=== PATIENT | male | born 1935 | race Caucasian/White ===

== ENCOUNTER 2018-09-04 06:21 | Inpatient (IN) | payer MEDICARE, MEDICAID ==
[~2018-09-04] VITALS: Ht 180.3 cm; Wt 84.8 kg
[~2018-09-04 06:21] MED LIST: ASPI-1169 PO; LOSA50TA39 PO; METO-356 PO; TAMS-12 PO; TIMO5DRO4 EACHEYE
--- NOTE | 2018-09-04 06:25 | NUR ---
Pt IS OF Pt WHO WAS IN ER BED 10 KENZIE TUCKER. Pt KENZIE GARCIA CAME TO ER TO VISIT HIS WHO CAME IN DUE TO SYNCOPAL EPISODE AT HOME. Pt WAS AT THE BEDSIDE OF ER BED 10 WITH HIS AND SON-IN -LAW AND DAUGHTER AT BEDSIDE WELL. DAUGHTER LEFT AND CURRENT Pt (THE ) STAYED BEHIND WITH HIS SON IN LAW. PER SON IN LAW CRYSTAL, HE SAID THAT THE Pt (RADHA) WAS TRYING TO SIT DOWN ON THE CHAIR, AND THE NEXT THING HE SAW WAS HIS FATHER IN LAW SLIPPED FROM THE CHAIR AND FELL DOWN ON THE FLOOR. SON IN LAW BELIEVES HE MAY HAVE HIT HIS HEAD ON THE BED HE WAS FALLING DOWN. I ONLY FOUND Pt AFTER HE WAS ALREADY ON THE FLOOR. I WAS ATTENDING TO Pt IN ER BED 11. HEARD A NOISE AND HEARD SON IN LAW CALLING FOR HELP. DID NOT WITNESS Pt HITTING HIS HEAD ON THE BED, BUT DID NOTICE THAT Pt's HEAD WAS VERY CLOSE TO THE BED AND THE WALL. DINORAH SANTIAGO AND I ASSISTED THE Pt TO HIS BACK SINCE HE WAS FACING DOWN TOWARDS THE GROUND ON HIS LEFT SIDE. NOTED Pt's EYES WERE OPEN AND BLINKING, BUT Pt WAS NON-RESPONSIVE TO QUESTIONS. SON IN LAW WAS SPEAKING TO HIM IN [place] BUT Pt WAS STILL NOT VERBALLY ANSWERING, BUT ONLY BLINKING HIS EYES. DR SARGENT AT BEDSIDE FOR EVAL. WAITING TO CARRY OUT ORDERS.
[2018-09-04 06:48] LABS: BASOPHILS # (AUTO) 0.1 /CMM (0.0-0.2); BASOPHILS % (AUTO) 0.9 % (0.0-2.0); EOSINOPHILS % (AUTO) 8.5 % (0.0-6.0); HEMATOCRIT 42 % (39-51); HEMOGLOBIN 13.7 g/dL (13.5-17.5); LYMPHOCYTES # (AUTO) 1.3 /CMM (0.8-4.8); LYMPHOCYTES % (AUTO) 17.2 % (20.0-44.0); MEAN CORPUSCULAR HGB CONC 33 g/dl (31.0-36.0); MEAN CORPUSCULAR VOLUME 91 fL (80-96); MONOCYTES # (AUTO) 0.8 /CMM (0.1-1.30); MONOCYTES % (AUTO) 10.7 % (2.0-12.0); NEUTROPHILS # (AUTO) 4.7 /CMM (1.8-8.9); NEUTROPHILS % (AUTO) 62.7 % (43.0-81.0); PLATELET COUNT (AUTO) 205 /CMM (150-450); RED BLOOD CELL COUNT(AUTO) 4.63 MIL/uL (4.5-6.0); WHITE BLOOD COUNT (AUTO) 7.4 K/uL (4.3-11.0)
--- NOTE | 2018-09-04 06:53 | NUR ---
PT IN CT
[2018-09-04 06:56] LABS: CALCIUM, SERUM 9.4 mg/dL (8.5-10.1); CARBON DIOXIDE 25 mmol/L (21-32); CHLORIDE 104 mmol/L (98-107); GLUCOSE 124 mg/dL (74-106); POTASSIUM 3.4 mmol/L (3.5-5.1); SODIUM SERUM 139 mmol/L (136-145); UREA NITROGEN, BLOOD 15 mg/dL (7-18)
[2018-09-04] MEDS ORDERED: IV NS 0.9% 1,000 ML BAG IV ONE (07:00)
[2018-09-04 07:02] LABS: ALANINE AMINOTRANSFERASE 18 U/L (12-78); ALBUMIN 3.9 g/dL (3.4-5.0); ALKALINE PHOSPHATASE 59 U/L (46-116); ASPARTATE AMINOTRANSFERASE 15 U/L (15-37); BILIRUBIN,DIRECT 0.3 mg/dL (0.0-0.2); BILIRUBIN,TOTAL 1.5 mg/dL (0.2-1.0); TOTAL PROTEIN, SERUM 7.8 g/dL (6.4-8.2)
[2018-09-04] MEDS ORDERED: DOXA2TAB2 PO (07:20)
--- NOTE | 2018-09-04 08:36 | NUR ---
PATIENT IS GOING TO ROOM 313-1
--- NOTE | 2018-09-04 08:53 | NUR ---
CALLED [facility] AND SPOKE TO RICHA JIN FOR JEOVANY.
[2018-09-04] MEDS ORDERED: LOSARTAN POTASSIUM 50 MG TABLET PO SCH (10:00)
[2018-09-04] MEDS ORDERED: MAGNESIUM HYDROXIDE 30 ML UDC PO PRN (10:30)
[2018-09-04] MEDS ORDERED: DOXAZOSIN MESYLATE (1 MG) 1 MG TABLET PO SCH (10:30)
[2018-09-04] MEDS ORDERED: MAG HYDROX/AL HYDROX/SIMETH 30 ML UDC PO PRN (10:30)
[2018-09-04] MEDS ORDERED: HYDROCODONE/APAP 5/325MG 1 EACH TABLET PO PRN (10:30)
[2018-09-04] MEDS ORDERED: Z GUARD REMEDY 2 OZ OINT TP PRN (10:30)
[2018-09-04] MEDS ORDERED: ZOLPIDEM TARTRATE 5 MG TABLET PO PRN (10:30)
[2018-09-04] MEDS ORDERED: ONDANSETRON HCL/PF 4 MG/2 ML VIAL IVP PRN (10:30)
[2018-09-04] MEDS ORDERED: ACETAMINOPHEN 325 MG TABLET PO PRN (10:30)
[2018-09-04 11:00] VITALS: BP_SYST 150; BP_SYST 151; BP_SYST 157; BP_DIAS 92; BP_DIAS 96; BP_DIAS 97
[2018-09-04] MEDS: POTASSIUM CHLORIDE 20 MEQ TAB.PRT.SR PO SCH ×2 (11:00→11:26)
--- NOTE | 2018-09-04 11:00 | NUR ---
tele manager agency: admission admitted this 83 yr old male pt from [facility] [place] with dx: syncope. awake, a/ox4; australian speaking with little jordanian. son at bedside to translate. no c/o pain or any discomfort. oriented to room and surroundings. tele sr with slight st elevation. orthostatic b/p done. pt c/o slight lightheadedness. will continue to monitor. instructed to call for assistance. will monitor.
[2018-09-04] MEDS: METOPROLOL SUCCINATE 25 MG TAB.SR.24H PO SCH (11:27)
[2018-09-04] MEDS: ASPIRIN 81 MG TAB.CHEW PO SCH (11:27)
[2018-09-04] MEDS: TIMOLOL 0.5% SOLN OPHTH 5 ML BOTTLE EACHEYE SCH ×2 (11:30→17:00)
--- NOTE | 2018-09-04 11:30 | NUR ---
tele powerhouse operator: p.t. eval up with p.t. at this time. son remains at bedside. will monitor.
--- NOTE | 2018-09-04 11:35 | NUR ---
tele milk runner: notes son requests to have his parents together in one room. per son dr. mejia already approved it already. cn made aware.
[2018-09-04 12:00] VITALS: BP 139/78
--- NOTE | 2018-09-04 12:30 | NUR ---
tele tank welder: notes son still asking for a room, informed son that the room still not ready yet. cn made aware.
--- NOTE | 2018-09-04 13:00 | NUR ---
tele dumpman: notes son keeps asking for the room and refused to listen with nurses that the room still not ready. son came up to nurses's station and spoke to cn. will continue to monitor.
[2018-09-04] MEDS: IV NS 0.9% 1,000 ML IV PRN (13:13)
[2018-09-04] MEDS ORDERED: POTASSIUM CHLORIDE 20 MEQ TAB.PRT.SR PO ONE (13:30)
--- NOTE | 2018-09-04 14:00 | NUR ---
tele fruit packer: notes son keeps asking if room is available now so that his parents can be together. informed son the room still not ready, but son is so adamant getting the room change now, son rushed to the nurse's station and spoke to cn. cn given son in 2 hours time because the room has just been cleaned and waxed. will continue to monitor.
--- NOTE | 2018-09-04 15:00 | NUR ---
tele adobe layer: notes moved pt to room 308-1 with all belongings via w/c. family and pt are pleased. instructed to call for assistance.
--- NOTE | 2018-09-04 15:35 | NUR ---
tele supportability engineer: notes dr. méndez here and informed md that per son pt is not taking cardura instead, pt is taking flomax 0.4mg po daily with order to d'c cardura and start him on flomax 0.4mg po daily. order read back and carried out and acknowledged.
[2018-09-04 16:00] VITALS: BP 146/88
--- NOTE | 2018-09-04 16:39 | NUR ---
tele perfect binder feeder offbearer: notes son came up to nurses station and informed me that they have their urologist called and per their urologist pt can have the flomax early. cn made aware. notified and made aware with order to give flomax 0.4mg po now and schedule next dose for tomorrow. order read back and carried out and acknowledged.
[2018-09-04] MEDS ORDERED: TAMSULOSIN 0.4 MG CAP.SR.24H PO SCH ×2 (17:00→22:00)
[2018-09-04] MEDS ORDERED: TAMSULOSIN 0.4 MG CAP.SR.24H PO ONE (17:00)
--- NOTE | 2018-09-04 17:00 | NUR ---
tele trouble shooter: notes son asked for flomax once more and informed him that pharmacist has verified the order yet. will continue to monitor.
--- NOTE | 2018-09-04 18:45 | NUR ---
tele ad clerk: notes resting comfortable with no distress noted. son remains at bedside. will continue to monitor.
--- NOTE | 2018-09-04 19:15 | NUR ---
tele systems testing laboratory technician: notes bedside report given to yolanda (rn) for continuity of care.
--- NOTE | 2018-09-04 19:30 | NUR ---
COLD ROLLING COORDINATOR INITIAL NOTES Patient in bed, awake, A/O x4. Stable oxygen saturation on RA. Sinus rhythm in tele monitor. IVF infusing tolerating well. Denies pain, no c/o of dizziness or headache. Maintained safety, will cont to monitor.
[2018-09-04 20:00] VITALS: BP 113/81
[2018-09-05] VITALS: BP 125/78
[2018-09-05] MEDS: IV NS 0.9% 1,000 ML IV PRN ×2 (00:55→08:31)
[2018-09-05 04:00] VITALS: BP 127/81
[2018-09-05 05:11] VITALS: BP 127/81
--- NOTE | 2018-09-05 06:08 | NUR ---
CUSTOM PROTECTION OFFICER CLOSING NOTES Patient in bed, slept well. Stable oxygen saturation on RA. Sinus rhythm on the tele monitor. IVF infusing, maintained at 125ml/hr, tolerating well. Ambulates independently, denies pain, no c/o of dizziness or headache, no episode of syncope, no acute events over night. Awaits neuro consult. Maintained safety, will endorse to oncoming RN.
--- NOTE | 2018-09-05 07:45 | NUR ---
Tele/RN - Assessment Patient in bed awake, alert and oriented x 4, admitted for syncope. Patient denies chest pain, no c/o of weakness or dizziness, stable on room air, tele shows SR. IVF NS at 125 ml/hr infusing well on the LAC with no signs of infiltration. Pending neuro consult. Patient and family updated on plan of care. Will continue with current medical management.
[2018-09-05 08:00] VITALS: BP 123/79
[2018-09-05 08:14] LABS: BASOPHILS % (AUTO) 0.8 % (0.0-2.0); HEMATOCRIT 38 % (39-51); HEMOGLOBIN 12.5 g/dL (13.5-17.5); LYMPHOCYTES % (AUTO) 20.1 % (20.0-44.0); MEAN CORPUSCULAR HGB CONC 33 g/dl (31.0-36.0); MEAN CORPUSCULAR VOLUME 91 fL (80-96); MONOCYTES # (AUTO) 0.5 /CMM (0.1-1.30); NEUTROPHILS # (AUTO) 2.7 /CMM (1.8-8.9); NEUTROPHILS % (AUTO) 55.1 % (43.0-81.0); PLATELET COUNT (AUTO) 161 /CMM (150-450); RED BLOOD CELL COUNT(AUTO) 4.12 MIL/uL (4.5-6.0)
[2018-09-05] MEDS: ASPIRIN 81 MG TAB.CHEW PO SCH (08:30)
[2018-09-05] MEDS: METOPROLOL SUCCINATE 25 MG TAB.SR.24H PO SCH (08:30)
[2018-09-05] MEDS: TIMOLOL 0.5% SOLN OPHTH 5 ML BOTTLE EACHEYE SCH (08:30)
[2018-09-05 08:31] LABS: ALANINE AMINOTRANSFERASE 15 U/L (12-78); ALBUMIN 3.2 g/dL (3.4-5.0); ALKALINE PHOSPHATASE 52 U/L (46-116); ASPARTATE AMINOTRANSFERASE 18 U/L (15-37); BILIRUBIN,TOTAL 1.7 mg/dL (0.2-1.0); CALCIUM, SERUM 8.3 mg/dL (8.5-10.1); CARBON DIOXIDE 26 mmol/L (21-32); CHLORIDE 108 mmol/L (98-107); CREATININE 0.8 mg/dL (0.6-1.3); GLUCOSE 90 mg/dL (74-106); MAGNESIUM 1.8 mg/dL (1.8-2.4); PHOSPHORUS 2.4 mg/dL (2.5-4.9); POTASSIUM 3.5 mmol/L (3.5-5.1); SODIUM SERUM 143 mmol/L (136-145); TOTAL PROTEIN, SERUM 6.6 g/dL (6.4-8.2); UREA NITROGEN, BLOOD 9 mg/dL (7-18)
[2018-09-05 08:42] LABS: CHOLESTEROL 167 mg/dL (<200); HDL CHOLESTEROL 53 mg/dL (40-60); LDL 109 mg/dL (0-99); THYROID STIMULATING HORMONE 1.543 uIU/mL (0.358-3.74); TRIGLYCERIDES 76 mg/dL (30-150)
[2018-09-05] MEDS: LOSARTAN POTASSIUM 50 MG TABLET PO SCH (12:48)
[2018-09-05] MEDS ORDERED: K PHOS NEUTRAL 250 MG TABLET PO ONE (13:00)
[2018-09-05 16:00] VITALS: BP 110/80
--- NOTE | 2018-09-05 18:05 | NUR ---
MS/RN - Closing notes Patient is alert and oriented throughout the shift, denies chest pain, no c/o of weakness or dizziness, stable on room air, ambulatory with assist, no apparent distress seen. Carotid Doppler done, results pending. Patient refused IVF, verbalized "I'm drinking lots of fluids." Phosphorus was low, repleted. Anticipate discharge home tomorrow if remain stable. Will continue with current medical management.
--- NOTE | 2018-09-05 19:10 | NUR ---
MS RN OPENING NOTES Received patient A/O X4, awake on Fontana's position on bed. Patient denies discomfort at this time. With patent periphearl LAC G#18, NS held at this time. Patient refused to take IVF at this time. Encouraged patient to increase oral fluid intake unless contraindicated. On RA, no sob/respiratoyr distress noted at this time. Will continue to monitor accordingly.
[2018-09-05 20:00] VITALS: BP 113/73
[2018-09-05] MEDS ORDERED: TAMSULOSIN 0.4 MG CAP.SR.24H PO SCH (22:00)
--- NOTE | 2018-09-06 06:27 | NUR ---
MS RN CLOSING NOTES Patient asleep on bed. On RA, no SOB/respiratory distress noted. Patient noted taking water as tolerated. All nursing needs attended. Due meds given as ordered, no ASE noted. Family member at bedside throughout the shift. No new complaints made. Kept bed low and locked, call light at bedside. Endorsed to the next shift.
[2018-09-06 08:00] VITALS: BP 138/83
[2018-09-06 08:37] VITALS: BP 134/76
[2018-09-06 08:38] VITALS: BP 153/98
[2018-09-06 08:39] VITALS: BP 157/99
[2018-09-06] MEDS: ASPIRIN 81 MG TAB.CHEW PO SCH (09:00)
[2018-09-06] MEDS ORDERED: TIMOLOL 0.5% SOLN OPHTH 5 ML BOTTLE EACHEYE SCH (09:00)
[2018-09-06] MEDS: METOPROLOL SUCCINATE 25 MG TAB.SR.24H PO SCH (09:00)
[2018-09-06 09:01] VITALS: BP 138/83
[2018-09-06] MEDS: LOSARTAN POTASSIUM 50 MG TABLET PO SCH (09:01)
--- NOTE | 2018-09-06 14:00 | NUR ---
DISCHARGE NOTES PATIENT DISCHARGE HOME AT THIS TIME. PATIENT STABLE, MED COMPLIANT, V/S STABLE, NO COMPLAINING OF PAIN AT THIS TIME. MED RECONCILIATION AND DISCHARGE ORDER REVIEWED AND EXPLAINED TO. PATIENT VERBALIZED UNDERSTANDING. BELONGING WITH THE PATIENT. PATIENT SIGN PAPERWORK, PATIENT WILL FOLLOW PRIMARY MD IN ONE WEEK FOR FOLLOW UP, AND TAKEN HOME MEDICATION. ESCORTED PATIENT TO THE [facility] FOR SAFETY. PATIENT ARTIFICIAL LIMB MAKER BY SON IN LOW NAME CRYSTAL PHONE # [phone].
== END 2018-09-06 13:50 | disposition home or self-care (01) | DRG 312 ==
LOC: ER 06:24 → TELE 09:49 → MED 09-05 09:51
PROVIDERS: ATTEND Student in an Organized Health Care Education/Training Program
DX: R55 Syncope and collapse (principal); N17.9 Acute kidney failure, unspecified; J90 Pleural effusion, not elsewhere classified; I25.10 Atherosclerotic heart disease of native coronary artery without angina pectoris; I10 Essential (primary) hypertension; Z95.5 Presence of coronary angioplasty implant and graft; H26.9 Unspecified cataract; E80.6 Other disorders of bilirubin metabolism; Z79.82 Long term (current) use of aspirin; Z79.899 Other long term (current) drug therapy
CPT/HCPCS: 36415; 70450-TC; 71045-TC; 76700-TC; 80048-TC; 80053-TC; 80061-TC; 80076-TC; 82962-TC; 83735-TC; 84100-TC; 84443-TC; 84484-TC; 85025-TC; 85730-TC; 87081-TC; 93307-TC; 93880-TC; G0378; J7030

== ENCOUNTER 2021-09-15 00:38 | Inpatient (IN) | payer MEDICARE, OTHER ==
[~2021-09-15] VITALS: Ht 200.7 cm; Wt 81.6 kg
[~2021-09-15 00:38] MED LIST changes: +DOXA2TAB2 PO; -METO-356 PO; +METO25TA4 PO; -TAMS-12 PO
--- NOTE | 2021-09-15 01:20 | NUR ---
THOMAS FROM HOME DUE TO WEAKNESS AND [place] WHEN HE GOT UP TO GO TO RESTROOM. NO TRAUMA OR LOC. ALSO HAS HAD EPISODES OF VOMITTING AND DIARRHEA. PT ALERT AND ORIENTED X 4 BREATHING EVEN AND UNLABORED.PLACED ON MONITOR AND V/S STABLE.
[2021-09-15] MEDS ORDERED: ONDANSETRON HCL/PF 4 MG/2 ML VIAL ONE (01:40)
[2021-09-15] MEDS ORDERED: IV NS 0.9% 1,000 ML BAG IV ONE (02:00)
[2021-09-15] MEDS ORDERED: ONDANSETRON HCL/PF 4 MG/2 ML VIAL IVP ONE (02:00)
--- NOTE | 2021-09-15 02:00 | NUR ---
XRAY AT BEDSIDE
--- NOTE | 2021-09-15 02:10 | NUR ---
MRSA SWAB COLLECTED AND SENT TO LAB. PATIENT'S BELONGINGS LIST DONE.
[2021-09-15 02:16] LABS: BASOPHILS % (AUTO) 0.4 % (0.0-2.0); EOSINOPHILS % (AUTO) 4.4 % (0.0-6.0); HEMATOCRIT 44 % (39-51); HEMOGLOBIN 14.3 g/dL (13.5-17.5); LYMPHOCYTES # (AUTO) 0.4 K/uL (0.8-4.8); LYMPHOCYTES % (AUTO) 2.8 % (20.0-44.0); MEAN CORPUSCULAR HGB CONC 33 g/dl (31.0-36.0); MEAN CORPUSCULAR VOLUME 91 fL (80-96); MONOCYTES # (AUTO) 0.9 K/uL (0.1-1.30); MONOCYTES % (AUTO) 6.9 % (2.0-12.0); NEUTROPHILS # (AUTO) 11.1 K/uL (1.8-8.9); NEUTROPHILS % (AUTO) 85.5 % (43.0-81.0); PLATELET COUNT (AUTO) 247 K/uL (150-450); RED BLOOD CELL COUNT(AUTO) 4.82 MIL/uL (4.5-6.0)
--- NOTE | 2021-09-15 02:23 | NUR ---
COVID SWAB SENT TO LAB
[2021-09-15 02:36] LABS: CALCIUM, SERUM 9.1 mg/dL (8.5-10.1); CARBON DIOXIDE 27 mmol/L (21-32); CHLORIDE 102 mmol/L (98-107); CREATININE 1.1 mg/dL (0.6-1.3); GLUCOSE 109 mg/dL (74-106); POTASSIUM 3.9 mmol/L (3.5-5.1); SODIUM SERUM 136 mmol/L (136-145); UREA NITROGEN, BLOOD 24 mg/dL (7-18)
[2021-09-15 02:50] LABS: ALANINE AMINOTRANSFERASE 23 U/L (12-78); ALBUMIN 3.6 g/dL (3.4-5.0); ALKALINE PHOSPHATASE 74 U/L (46-116); ASPARTATE AMINOTRANSFERASE 26 U/L (15-37); BILIRUBIN,DIRECT 0.3 mg/dL (0.0-0.2); BILIRUBIN,TOTAL 1.7 mg/dL (0.2-1.0); LIPASE 142 U/L (73-393); TOTAL PROTEIN, SERUM 7.5 g/dL (6.4-8.2)
--- NOTE | 2021-09-15 03:00 | NUR ---
URINE COLLECTED AND SENT TO LAB
--- NOTE | 2021-09-15 03:33 | NUR ---
CALLED [facility] FOR IMAGING READ
[2021-09-15 03:56] LABS: BILIRUBIN,URINE NEGATIVE (NEGATIVE); COLOR,URINE YELLOW (YELLOW); LEUKOCYTE ESTERASE ,URINE NEGATIVE (NEGATIVE); NITRITE, URINE NEGATIVE (NEGATIVE); PROTEIN,URINE NEGATIVE (NEGATIVE); UGLUCOSE NEGATIVE (NEGATIVE); UROBILINOGEN,URINE 0.2 EU/dL (0.2)
[2021-09-15] MEDS ORDERED: ASPIRIN 81 MG TAB.CHEW ONE (03:57)
[2021-09-15] MEDS ORDERED: ASPIRIN 81 MG TAB.CHEW PO ONE (04:00)
[2021-09-15] MEDS ORDERED: ONDANSETRON HCL/PF 4 MG/2 ML VIAL IVP PRN (04:30)
[2021-09-15] MEDS ORDERED: TEMAZEPAM 15 MG CAPSULE PO PRN (04:30)
[2021-09-15] MEDS ORDERED: MORPHINE SULFATE INJ 2 MG/ML DISP.SYRIN IV PRN (04:30)
[2021-09-15] MEDS ORDERED: ACETAMINOPHEN 325 MG TABLET PO PRN (04:30)
[2021-09-15] MEDS ORDERED: IV NS 0.9% 1,000 ML IV PRN (04:30)
[2021-09-15] MEDS ORDERED: Z GUARD REMEDY 4 OZ OINT TP PRN (04:30)
[2021-09-15] MEDS ORDERED: MAGNESIUM HYDROXIDE 30 ML UDC PO PRN (04:30)
[2021-09-15] MEDS ORDERED: MAG HYDROX/AL HYDROX/SIMETH 30 ML UDC PO PRN (04:30)
[2021-09-15] MEDS ORDERED: HYDROCODONE/APAP 5/325MG TABLET PO PRN (04:30)
--- NOTE | 2021-09-15 05:01 | NUR ---
BED ASSIGNMENT: 327-2
--- NOTE | 2021-09-15 05:53 | NUR ---
REPORT GIVEN TO JAYME ON THIRD FLOOR
--- NOTE | 2021-09-15 07:00 | NUR ---
transferred to third floor under ACLS
--- NOTE | 2021-09-15 07:07 | NUR ---
AGING BOX HAND NOTES PT ARRIVED TO UNIT TELE MONITOR PLACED AORIENTED TO ROOM WILL ENDORSE CARE TO DAY SHIFT NURSE.
[2021-09-15] MEDS ORDERED: PANTOPRAZOLE 40 MG TABLET.DR PO SCH (07:30)
--- NOTE | 2021-09-15 07:33 | NUR ---
RN OPENING NOTES PATIENT AWAKE IN BED RESTING, A/O X3. NO S/S OF PAIN NOTED AT THIS TIME. PATIENT ON ROOM AIR, NO DISTRESS OR SHORTNESS OF BREATH. IV ACCESS RAC #18G INTACT, PATENT AND FLUSHING WELL. PATIENT HAS AN EXTERNAL [place] APPRENTICE CURRENT READING OF S.R AND HR OF 88. FALL AND SAFETY MEASURES IN PLACE, BED ALARM ON, BED IN LOW AND LOCK POSITION, CALL LIGHT AND TABLE WITHIN EASY REACH, SIDE RAILS UP X2. WILL CONTINUE TO MONITOR.
[2021-09-15] MEDS ORDERED: ROSU10TA29 PO (09:35)
[2021-09-15] MEDS ORDERED: TAMS-12 PO (09:35)
[2021-09-15] MEDS ORDERED: ESCI20TA PO (09:35)
[2021-09-15] MEDS ORDERED: DUTA0.5C37 PO (09:35)
[2021-09-15] MEDS ORDERED: TIMO5SOL11 EACHEYE (09:35)
[2021-09-15] MEDS ORDERED: ASPI-1420 PO (09:35)
[2021-09-15 12:54] VITALS: BP 116/68
[2021-09-15 16:16] VITALS: BP 111/71
--- NOTE | 2021-09-15 17:40 | NUR ---
BREAKDOWN MAN NOTE PATIENT DISCHARGED IN MEDICAL STABLE CONDITION. A/O X3-4. V/S TAKEN, STABLE AND RECORDED. NO IV ACCESS. SKIN ASSESSMENT DONE, SKIN INTACT. NAME ARM BAND REMOVED. ALL BELONGINGS CHECKED AND SIGNED. HEALTH TEACHING AND DISCHARGE INSTRUCTIONS GIVEN TO PATIENT AND PATIENT'S SON, THEY VERBALIZED UNDERSTANDING. PATIENT LEFT UNIT VIA WHEELCHAIR WITH NO SIGNS OF DISTRESS, ACCOMPANIED BY DIRECTOR OF MARKET ANALYSIS TO THE LOBBY. CHARGE NURSE AWARE OF DISCHARGE.
== END 2021-09-15 18:00 | disposition home or self-care (01) | DRG 312 ==
LOC: ER 00:40 → TELE 05:03
DX: I95.1 Orthostatic hypotension (principal); I10 Essential (primary) hypertension; Z79.82 Long term (current) use of aspirin; K52.9 Noninfective gastroenteritis and colitis, unspecified; H26.9 Unspecified cataract; I25.10 Atherosclerotic heart disease of native coronary artery without angina pectoris; Z20.822 Contact with and (suspected) exposure to COVID-19; Z98.61 Coronary angioplasty status; R53.1 Weakness; E80.6 Other disorders of bilirubin metabolism; I35.0 Nonrheumatic aortic (valve) stenosis; E86.9 Volume depletion, unspecified
CPT/HCPCS: 36415; 71045-TC; 80048-TC; 80076-TC; 83690-TC; 84484-TC; 85025-TC; 85378-TC; 87081-TC; 93307-TC; 97116-TC; 97530-TC; C9803; G0378; J2405; J7030

== ENCOUNTER 2022-11-10 10:41 | Inpatient (IN) | payer MEDICARE, OTHER ==
[~2022-11-10] VITALS: Ht 177.8 cm; Wt 83.9 kg
[~2022-11-10 10:41] MED LIST changes: -ASPI-1169 PO; +ASPI-1420 PO; -DOXA2TAB2 PO; +DUTA0.5C37 PO; +ESCI20TA PO; -LOSA50TA39 PO; +ROSU10TA29 PO; +TAMS-12 PO; -TIMO5DRO4 EACHEYE; +TIMO5SOL11 EACHEYE
--- NOTE | 2022-11-10 10:52 | NUR ---
bibfidel, from home, had tripped and fall, lac on the lower lip, c/o dizziness and weak, BG 170. On room air, breathing evenly and unlabored. Kept comfortable, will continue to monitor accordingly.
--- NOTE | 2022-11-10 11:20 | NUR ---
TIMBER POISONER AT BEDSIDE
[2022-11-10] MEDS ORDERED: ACETAMINOPHEN 325 MG TABLET ONE (11:23)
[2022-11-10] MEDS ORDERED: TDAP [DIPH/PERTUSSIS/TET] 0.5 ML VIAL IM ONE ×2 (11:23→11:30)
[2022-11-10] MEDS ORDERED: BACI/NEOM/POLY B OINT PKT 1 UDPKT PACKET TP ONE (11:30)
[2022-11-10] MEDS ORDERED: ACETAMINOPHEN 325 MG TABLET PO ONE (11:30)
[2022-11-10] MEDS ORDERED: IV NS 0.9% 1,000 ML BAG IV ONE (11:30)
[2022-11-10 11:42] LABS: CALCIUM, SERUM 8.8 mg/dL (8.5-10.1); CARBON DIOXIDE 25 mmol/L (21-32); CHLORIDE 108 mmol/L (98-107); CREATININE 1.2 mg/dL (0.6-1.3); GLUCOSE 128 mg/dL (74-106); POTASSIUM 3.6 mmol/L (3.5-5.1); SODIUM SERUM 139 mmol/L (136-145); UREA NITROGEN, BLOOD 18 mg/dL (7-18)
[2022-11-10 11:48] LABS: ALANINE AMINOTRANSFERASE 16 U/L (12-78); ALBUMIN 3.4 g/dL (3.4-5.0); ALKALINE PHOSPHATASE 75 U/L (46-116); ASPARTATE AMINOTRANSFERASE 22 U/L (15-37); BILIRUBIN,DIRECT 0.3 mg/dL (0.0-0.2); BILIRUBIN,TOTAL 1.7 mg/dL (0.2-1.0); TOTAL PROTEIN, SERUM 6.9 g/dL (6.4-8.2)
[2022-11-10 11:54] LABS: BASOPHILS # (AUTO) 0.1 K/uL (0.0-0.2); BASOPHILS % (AUTO) 1.6 % (0.0-2.0); EOSINOPHILS % (AUTO) 3.7 % (0.0-6.0); HEMATOCRIT 46 % (39-51); HEMOGLOBIN 14.8 g/dL (13.5-17.5); LYMPHOCYTES # (AUTO) 0.6 K/uL (0.8-4.8); LYMPHOCYTES % (AUTO) 6.9 % (20.0-44.0); MEAN CORPUSCULAR HGB CONC 32 g/dl (31.0-36.0); MEAN CORPUSCULAR VOLUME 92 fL (80-96); MONOCYTES # (AUTO) 0.5 K/uL (0.1-1.30); MONOCYTES % (AUTO) 5.8 % (2.0-12.0); NEUTROPHILS # (AUTO) 6.8 K/uL (1.8-8.9); PLATELET COUNT (AUTO) 256 K/uL (150-450); RED BLOOD CELL COUNT(AUTO) 5.05 MIL/uL (4.5-6.0); WHITE BLOOD COUNT (AUTO) 8.3 K/uL (4.3-11.0)
--- NOTE | 2022-11-10 12:07 | NUR ---
PATIENT TAKEN TO CT VIA [facility]
--- NOTE | 2022-11-10 12:30 | NUR ---
SWAB FOR COVID19 SENT TO LAB
--- NOTE | 2022-11-10 13:25 | NUR ---
MOVE SHEET SUBMITTED.
--- NOTE | 2022-11-10 14:01 | NUR ---
[facility] CALLED RN CLINICAL COORDINATOR PAGED.
[2022-11-10] MEDS ORDERED: ONDANSETRON HCL/PF 4 MG/2 ML VIAL IVP PRN (14:30)
[2022-11-10] MEDS ORDERED: MORPHINE SULFATE INJ 2 MG/ML DISP.SYRIN IV PRN (14:30)
[2022-11-10] MEDS ORDERED: ACETAMINOPHEN 325 MG TABLET PO PRN (14:30)
[2022-11-10] MEDS ORDERED: hydrALAZINE HCL IV 20 MG VIAL IV PRN (14:30)
--- NOTE | 2022-11-10 14:37 | NUR ---
GOT BED 311-1 ADMITTING INFORMED.
--- NOTE | 2022-11-10 14:54 | NUR ---
report given to Sloan COPELAND to continue care.
--- NOTE | 2022-11-10 15:20 | NUR ---
patient transfered and admitted per ACLS protocol
[2022-11-10 15:30] VITALS: BP 158/84
--- NOTE | 2022-11-10 15:48 | NUR ---
WOOD MECHANISTCOMPUTER NUMERICAL CONTROL GRINDER NOTES RECEIVED PT FROM ER VIA [facility] AT 1520. PT ALERT,ORIENTED X4, ALBANIAN SPEAKING. FULL CODE. ALLERGIC TO NITROGLYCERIN. ADMITTING DX OF SYNCOPE. C/C OF DIZZINESS AND WEAKNESS. PT IS AMBULATORY AND CONTINENT X2. SKIN INTACT WITH LOWER LIP LACERATION. ON ROOM AIR TOLERATING WELL AT 98% O2 SAT. NO EDEMA NOTED. ON KERI MONITOR SR 68. ON REGULAR DIET. IV ACCESS AT RAC 18 G SL. DENIES PAIN AND SOB. FALL AND SAFETY MEASURES IN PLACED. SIDE RAILS UP X2. PRE VITALS TAKEN, STABLE AND WITHIN NORMAL LIMITS. CALL LIGHT WITHIN REACH. BED LOCKED IN LOWEST POSITION. WILL CONTINUE TO MONITOR AND ADMINISTER ALL SCHEDULED MEDS PRESCRIBED. ALL BELONGINGS CHECKED AND BELONGING LIST SIGNED.
[2022-11-10] MEDS: IV NS 0.9% 1,000 ML IV SCH (16:08)
[2022-11-10] MEDS: ENOXAPARIN SODIUM 40 MG/0.4 ML DISP.SYRIN SQ SCH (16:09)
[2022-11-10] MEDS ORDERED: ATORVASTATIN 10 MG TABLET PO SCH (18:00)
--- NOTE | 2022-11-10 18:31 | NUR ---
HOGSHEAD HEAD MATCHER CLOSING NOTES PT RESTING IN BED IN SEMIFOWLERS POSITION. ON ROOM AIR TOLERATING WELL. DENIES PAIN AND RESPIRATORY DISTRESS. IV ACCESS ON RAC 18 G RUNNING NS 75 ML/HR. SAFETY MEASURES IN PLACED, CALL LIGHT WITHIN REACH. ALL SCHEDULED MEDS ADMINISTERED. WILL ENDORSE TO NEXT SHIFT.
[2022-11-10 20:00] VITALS: BP 135/80
[2022-11-10] MEDS ORDERED: TAMSULOSIN 0.4 MG CAP.SR.24H PO SCH (22:00)
[2022-11-11] VITALS: BP 111/65
[2022-11-11 04:00] VITALS: BP 138/79
--- NOTE | 2022-11-11 05:59 | NUR ---
END OF SHIFT REPORT Patient in bed, Alert Oriented x3. Oxygen sat high 90's. Sinus Quentin in electronic device monitor HR 59 No c/o dizziness, no N/V. IV Right AC intact, IVF continuous. Patient denies headache, Afebrile. Voided no difficulty, no BM during the night. Slept well. Echo result pending. Fall precaution maintained. Will endorse to oncoming RN.
[2022-11-11 06:09] LABS: BASOPHILS # (AUTO) 0.1 K/uL (0.0-0.2); BASOPHILS % (AUTO) 1.3 % (0.0-2.0); EOSINOPHILS % (AUTO) 13.6 % (0.0-6.0); HEMATOCRIT 42 % (39-51); HEMOGLOBIN 13.7 g/dL (13.5-17.5); LYMPHOCYTES # (AUTO) 0.8 K/uL (0.8-4.8); LYMPHOCYTES % (AUTO) 11.4 % (20.0-44.0); MEAN CORPUSCULAR HGB CONC 33 g/dl (31.0-36.0); MEAN CORPUSCULAR VOLUME 92 fL (80-96); MONOCYTES # (AUTO) 0.7 K/uL (0.1-1.30); MONOCYTES % (AUTO) 9.3 % (2.0-12.0); NEUTROPHILS # (AUTO) 4.8 K/uL (1.8-8.9); NEUTROPHILS % (AUTO) 64.4 % (43.0-81.0); PLATELET COUNT (AUTO) 240 K/uL (150-450); WHITE BLOOD COUNT (AUTO) 7.5 K/uL (4.3-11.0)
[2022-11-11] MEDS: IV NS 0.9% 1,000 ML IV SCH (06:09)
[2022-11-11 07:04] LABS: ALANINE AMINOTRANSFERASE 14 U/L (12-78); ALBUMIN 2.9 g/dL (3.4-5.0); ALKALINE PHOSPHATASE 58 U/L (46-116); ASPARTATE AMINOTRANSFERASE 16 U/L (15-37); BILIRUBIN,TOTAL 2.1 mg/dL (0.2-1.0); CALCIUM, SERUM 8.4 mg/dL (8.5-10.1); CARBON DIOXIDE 25 mmol/L (21-32); CHLORIDE 110 mmol/L (98-107); GLUCOSE 92 mg/dL (74-106); MAGNESIUM 1.9 mg/dL (1.8-2.4); PHOSPHORUS 2.6 mg/dL (2.5-4.9); POTASSIUM 3.5 mmol/L (3.5-5.1); SODIUM SERUM 142 mmol/L (136-145); TOTAL PROTEIN, SERUM 5.9 g/dL (6.4-8.2); UREA NITROGEN, BLOOD 11 mg/dL (7-18)
--- NOTE | 2022-11-11 08:53 | NUR ---
WOUND CARE CONSULT: PT PRESENTS WITH DRY ABRASION TO LOWER LIP, PRESENT ON ADMISSION. NO ACUTE BLEEDING OR TENDERNESS NOTED AT THIS TIME. OPEN TO AIR. WILL SEE PRN.
[2022-11-11] MEDS ORDERED: ASPIRIN EC 81 MG TABLET.DR PO SCH (09:00)
[2022-11-11] MEDS ORDERED: TIMOLOL -XE 0.5% 5 ML BOTTLE EACHEYE SCH (09:00)
[2022-11-11] MEDS ORDERED: ESCITALOPRAM OXALATE (10 MG) 10 MG TABLET PO SCH (09:00)
[2022-11-11] MEDS ORDERED: TAMSULOSIN 0.4 MG CAP.SR.24H PO SCH (09:00)
[2022-11-11] MEDS ORDERED: DUTASTERIDE (0.5 MG) 0.5 MG CAPSULE PO SCH (09:00)
[2022-11-11] MEDS ORDERED: METOPROLOL SUCCINATE 25 MG TAB.SR.24H PO SCH (09:00)
[2022-11-11] MEDS: ENOXAPARIN SODIUM 40 MG/0.4 ML DISP.SYRIN SQ SCH (09:56)
[2022-11-11 09:58] VITALS: BP 150/88
--- NOTE | 2022-11-11 12:00 | NUR ---
UTILITY INSPECTOR OPENING NOTES received patient awake in bed, Alert Oriented x4. Sinus rhythm in bus monitor HR 70. No c/o dizziness, no N/V. IV Right AC g# 20 patent, intact and infusing well. IVF continuous. Patient denies headache, Afebrile. Voided no difficulty, Fall precaution maintained. bed in low, locked position, siderails up x2, call light within reach. will continue to monitor patient.
--- NOTE | 2022-11-11 14:05 | NUR ---
DISCHARGE NOTES PATIENT DISCHARGE HOME IN STABLE CONDITION. A/O X4. ABLE TO MAKE NEEDS KNOWN. AMBULATORY WITH STEADY GAIT. PATIENT IS BREATHING EVENLY AND UNLABORED ON ROOM AIR, NO SIGNS OF DISTRESS NOTED. SKIN ISSUES PHOTO TAKEN AND FILED. DOUBLE CORNER CUTTER GIVEN TO BRISEYDA. DISCHARGE INSTRUCTIONS GIVEN VERBALLY AND IN WRITTEN FORM, PT AND SON IN LAW VERBALIZED UNDERSTANDING. PATIENT ALL BELONGINGS ACCOUNTED FOR, BELONGING SHEET SIGNED BY SON IN LAW. IV ACCESS ON RAC G#20 REMOVED, DRY DRESSING APPLIED AT SITE, NO SIGNS OF BLEEDING NOTED. NAME ARMBAND REMOVED. PATIENT LEFT UNIT AT 1401 AMBULATORY ACCOMPANIED BY HIS SON IN-LAW CRYSTAL LANGE.. CHARGE NURSE AWARE OF D/C.
== END 2022-11-11 14:00 | disposition home health service (06) | DRG 72 ==
LOC: ER 10:42 → TELE 15:00
PROVIDERS: ADMIT Internal Medicine; ATTEND Internal Medicine
DX: I67.83 Posterior reversible encephalopathy syndrome (principal); I10 Essential (primary) hypertension; I25.10 Atherosclerotic heart disease of native coronary artery without angina pectoris; Z95.5 Presence of coronary angioplasty implant and graft; S00.531A Contusion of lip, initial encounter; I35.0 Nonrheumatic aortic (valve) stenosis; E78.5 Hyperlipidemia, unspecified; S00.83XA Contusion of other part of head, initial encounter; W01.0XXA Fall on same level from slipping, tripping and stumbling without subsequent striking against object, initial encounter; W18.39XA Other fall on same level, initial encounter; Y92.89 Other specified places as the place of occurrence of the external cause; Z20.822 Contact with and (suspected) exposure to COVID-19; Z79.899 Other long term (current) drug therapy
CPT/HCPCS: 36415; 70450-TC; 70486-TC; 71045-TC; 80048-TC; 80053-TC; 80076-TC; 83605-TC; 83735-TC; 84100-TC; 84484-TC; 85025-TC; 87040-TC; 87081-TC; 90715; 93307-TC; C9803; G0378; J1650; J7030